=== PATIENT | female | born 1980 | race Caucasian/White ===

== ENCOUNTER 2018-01-01 05:18 | Day surgery (SDC) | payer BC ==
[2017-12-31 15:42] VITALS: BMI 32.3
[2018-01-01] MEDS ORDERED: IBUPROFEN 800 MG/8 ML IJ IVPB PRN (13:17)
--- NOTE | 2018-01-01 13:17 | HP ---
History & Physical Update - History History: No Change - Physical Physical: No Change - Assessment Assessment: No Change - Plan Plan: No Change (Agree with H&P from 12/27/17, for HTA endometrial ablation 2/2 menorrhagia)
[2018-01-01] MEDS ORDERED: ONDANSETRON 4 MG/2 ML VIAL IVPUSH PRN (13:20)
[2018-01-01] MEDS ORDERED: MIDAZOLAM HCL 2 MG/2 ML SINGLE DOSE VIAL ONE (13:24)
[2018-01-01] MEDS ORDERED: PROPOFOL 20 ML ONE (13:28)
[2018-01-01] MEDS ORDERED: SUCCINYLCHOLINE CHLORIDE 200 MG/10 ML VIAL ONE (13:30)
[2018-01-01] MEDS ORDERED: LACTATED RINGERS SOLUTION 1,000 ML IV SCH ×2 (13:30)
[2018-01-01] MEDS ORDERED: DEXAMETHASONE SOD PHOSPHATE 4 MG/1 ML VIAL ONE (13:56)
[2018-01-01] MEDS ORDERED: KETOROLAC TROMETHAMINE 30 MG/1 ML VIAL ONE (13:56)
[2018-01-01] MEDS ORDERED: LIDOCAINE HCL/PF 2% SDV 5ML VIAL ONE (13:56)
--- NOTE | 2018-01-01 15:04 | OP ---
Operative Note - Note: Operative Date: 01/01/18 Pre-Operative Diagnosis: Menorrhagia Operation: HTA endometrial ablation Findings: normal uterine cavity, bilteral tubal ostea noted Post-Operative Diagnosis: Same as Pre-op Surgeon: Alisia Lozano Anesthesiologist/HAND MOLD MAKER: iNcci Miller MD Anesthesia: General (LMA) Estimated Blood Loss (mls): 20 Operative Report Dictated: Yes
[2018-01-01] MEDS ORDERED: oxyCODONE HCL 5 MG TABLET ONE (15:22)
[2018-01-01 18:11] VITALS: BP 145/86; PULSE 75; TEMP 98.7
--- NOTE | 2018-01-02 10:25 | OP ---
DATE OF OPERATION: 01/01/2018 PREOPERATIVE DIAGNOSIS: Menorrhagia. POSTOPERATIVE DIAGNOSIS: Menorrhagia. PROCEDURE: HTA endometrial ablation. SURGEON: Alisia Lozano DO ACCOUNT EXECUTIVE: None. ANESTHESIA: LMA. ANESTHESIOLOGIST: Nicci Miller MD FINDINGS: A normal intrauterine cavity. Bilateral tubal ostia were noted. ESTIMATED BLOOD LOSS: 20 mL. COMPLICATIONS: None. COUNTS: Sponge, needle, and instrument counts correct. DISPOSITION: Stable, to PACU. BRIEF HISTORY AND PROCEDURE: Patient is a 37-year-old female who has been seen in the office with a long history of menorrhagia. We tried several methods, such as control pills, IUDs, and requested more definitive treatment, and therapies were discussed, and she elected to undergo an HTA endometrial ablation. The patient is not desiring future childbearing. The patient was admitted to the hospital on January 01, 2018. Consents were signed in the office, but reconfirmed upon admission on that date. She was then taken back to the operating room and placed in the dorsal lithotomy position and given the LMA anesthesia. She was then prepped and draped in the usual sterile fashion and a hard timeout was performed. A speculum was placed inside the vagina. The anterior lip of the cervix was grasped with a tenaculum and the cervix was serially dilated to accommodate the endometrial scope. The scope was advanced to inside the cervix into the uterus. A diagnostic hysteroscopy was performed. Bilateral tubal ostia were noted and a normal intrauterine cavity was appreciated. The scope was then retracted to the level of the internal cervical os and the device was activated. Any leaking of fluid from the cervix was stopped with application of another tenaculum and the ablation was initiated. The ablation occurred without incident and a diagnostic hysteroscopy performed after the ablation was completed with no evidence of uterine perforation. No other intrauterine trauma was appreciated. All instruments were removed from the uterus and the vagina. Two cervical lacerations were noted from the application of the tenaculum which were repaired with 3-0 Vicryl sutures in an interrupted fashion. Excellent hemostasis was achieved. All instruments and needles were removed from the surgical site. Sponge, needle, and instrument counts were reported to be correct. The patient was awoken from anesthesia and recovering in stable condition in the PACU after the procedure. ALISIA LOZANO DO /[id number]
== END 2018-01-01 17:00 | disposition home or self-care (01) ==
LOC: JASU-SURG 05:18
PROVIDERS: ATTEND Obstetrics & Gynecology
PROC: 0U5B8ZZ Destruction of Endometrium, Via Natural or Artificial Opening Endoscopic (ICD-10-PCS; principal; 2018-01-01 13:00)
DX: N92.0 Excessive and frequent menstruation with regular cycle (principal)
CPT/HCPCS: 84703; 94760

== ENCOUNTER 2018-09-08 16:21 | Emergency (ER) | payer BC ==
--- NOTE | 2018-09-08 16:59 | PDOC ---
Rapid Medical Evaluation Chief Complaint: Pain Time Seen by Provider: 09/08/18 16:55 Medical Evaluation: Allergies Allergy/AdvReac Type Severity Reaction Status Date / Time No Known Drug Allergies Allergy Verified 09/08/18 16:51 09/08/18 16:55 I have performed a brief in-person evaluation of this patient. The patient presents with chief complaint of feeling tired and pain to left rib area. Also reports loss of appetite. Pertinent physical exam findings NAD even, clear lungs bilaterally non tender luq I have ordered the following The patient will proceed to the Ed for further evaluation Discharge Disposition - Diagnosis Abdominal pain - Referrals - Patient Instructions - Post Discharge Activity
[2018-09-08 17:00] VITALS: BMI 31.9
--- NOTE | 2018-09-08 18:13 | PDOC ---
History of Present Illness - General History Source: Patient Exam Limitations: No Limitations - History of Present Illness Initial Comments: 09/08/18 18:50 The patient is a 37 year old female, with a significant past medical history of HTN (compliant with medication) who presents to the emergency department with one week of generalized malaise and L anterior rib cage pain. The patient states she experiences dyspnea, secondary to her symptoms for the past week. The patient reports she was diagnosed with MONO 2 weeks ago that self resolved. The patient denies taking any medication today. The patient denies chest pain, headache and dizziness, fever, chills, nausea, vomit, diarrhea and constipation. The patient denies dysuria, frequency, urgency and hematuria. Allergies: NKDA Past surgical history: Cholecystectomy Social history: social drinker PCP: Beto Olvera <Sherly Magdaleno - Last Filed: 09/08/18 18:50> <Vi Mireles - Last Filed: 09/08/18 23:06> - General Chief Complaint: Pain Stated Complaint: PAIN Time Seen by Provider: 09/08/18 16:55 Past History <Sherly Magdaleno - Last Filed: 09/08/18 18:50> - Past Medical History Anemia: No Asthma: No Cancer: No Cardiac Disorders: No CVA: No COPD: No CHF: No Dementia: No Diabetes: No GI Disorders: No Disorders: No HTN: Yes Hypercholesterolemia: No Liver Disease: No Seizures: No Thyroid Disease: No - Surgical History Abdominal Surgery: No Appendectomy: No Cardiac Surgery: No Cholecystectomy: Yes Lung Surgery: No Neurologic Surgery: No Orthopedic Surgery: No - Immunization History Immunization Up to Date: Yes - Suicide/Smoking/Psychosocial Hx Smoking History: Never smoked Have you smoked in the past 12 months: Yes Number of Cigarettes Smoked Daily: 7 'Breaking Loose' booklet given: 12/31/17 Hx Alcohol Use: No Drug/Substance Use Hx: No Substance Use Type: Alcohol Hx Substance Use Treatment: No <Vi Mireles - Last Filed: 09/08/18 23:06> - Past Medical History Allergies/Adverse Reactions: Allergies Allergy/AdvReac Type Severity Reaction Status Date / Time No Known Drug Allergies Allergy Verified 09/08/18 16:51 Home Medications: Ambulatory Orders Hydrochlorothiazide [Hctz -] 25 mg PO DAILY 12/31/17 Lisinopril 2.5 mg PO DAILY 12/31/17 Phentermine HCl 37.5 mg PO DAILY 12/31/17 Ibuprofen [Motrin -] 600 mg PO QID PRN #28 tablet 01/01/18 Review of Systems - Review of Systems Able to Perform ROS?: Yes Comments:: 09/08/18 18:51 GENERAL/CONSTITUTIONAL: (+) general malaise. No fever or chills. HEAD, EYES, EARS, NOSE AND THROAT: No change in vision. No ear pain or discharge. No sore throat. CARDIOVASCULAR:(+) dyspnea. No chest pain. RESPIRATORY: No cough, wheezing, or hemoptysis. GASTROINTESTINAL: No nausea, vomiting, diarrhea or constipation. GENITOURINARY: No dysuria, frequency, or change in urination. MUSCULOSKELETAL: No joint or muscle swelling or pain. No neck or back pain. SKIN: No rash CHEST: (+) L anterior rib cage pain. NEUROLOGIC: No headache, vertigo, loss of consciousness, or change in strength/ sensation. ENDOCRINE: No increased thirst. No abnormal weight change. HEMATOLOGIC/LYMPHATIC: No anemia, easy bleeding, or history of blood clots. ALLERGIC/IMMUNOLOGIC: No hives or skin allergy. <Sherly Magdaleno - Last Filed: 09/08/18 18:50> *Physical Exam - Vital Signs Last Vital Signs Temp Pulse Resp BP Pulse Ox 98.2 F 96 H 16 132/85 98 09/08/18 16:51 09/08/18 16:51 09/08/18 16:51 09/08/18 16:51 09/08/18 16:51 - Physical Exam Comments: 09/08/18 18:51 GENERAL: Awake, alert, and fully oriented, in no acute distress HEAD: No signs of trauma EYES: PERRLA, EOMI, sclera anicteric, conjunctiva clear ENT: Auricles normal inspection, hearing grossly normal, nares patent, oropharynx clear without exudates. Moist mucosa NECK: Normal ROM, supple, no lymphadenopathy, JVD, or masses LUNGS: Breath sounds equal, clear to auscultation bilaterally. No wheezes, and no crackles HEART: Regular rate and rhythm, normal S1 and S2, no murmurs, rubs or gallops CHEST: (+) L anterior rib cage pain. ABDOMEN: Soft, nontender, normoactive bowel sounds. No guarding, no rebound. No masses EXTREMITIES: Normal range of motion, no edema. No clubbing or cyanosis. No cords, erythema, or tenderness NEUROLOGICAL: Cranial nerves II through XII grossly intact. Normal speech, normal gait SKIN: Warm, Dry, normal turgor, no rashes or lesions noted. <Sherly Magdaleno - Last Filed: 09/08/18 18:50> - Vital Signs Last Vital Signs Temp Pulse Resp BP Pulse Ox 98.2 F 96 H 16 132/85 98 09/08/18 16:51 09/08/18 16:51 09/08/18 16:51 09/08/18 16:51 09/08/18 16:51 <Vi Mireles - Last Filed: 09/08/18 23:06> Moderate Sedation - Procedure Monitoring Vital Signs: Procedure Monitoring Vital Signs Temperature 98.2 F 09/08/18 16:51 Pulse Rate 96 H 09/08/18 16:51 Respiratory Rate 16 09/08/18 16:51 Blood Pressure 132/85 09/08/18 16:51 O2 Sat by Pulse Oximetry (%) 98 09/08/18 16:51 <Sherly Magdaleno - Last Filed: 09/08/18 18:50> - Procedure Monitoring Vital Signs: Procedure Monitoring Vital Signs Temperature 98.2 F 09/08/18 16:51 Pulse Rate 96 H 09/08/18 16:51 Respiratory Rate 16 09/08/18 16:51 Blood Pressure 132/85 09/08/18 16:51 O2 Sat by Pulse Oximetry (%) 98 09/08/18 16:51 <Vi Mireles - Last Filed: 09/08/18 23:06> ED Treatment Course - LABORATORY CBC & Chemistry Diagram: 09/08/18 19:27 09/08/18 19:27 <Vi Mireles - Last Filed: 09/08/18 23:06> Medical Decision Making - Medical Decision Making 09/08/18 22:54 37 yo female was diagnosed with Infectious mononucleosis several weeks ago and has had some left anterior ribcage discomfort -no fever,no chills,no vomiting,no sub sternal chest pain -she googled her symptoms and came because she read that pain on her left side maybe due to spleenomegaly -she did not have any splenic tenderness on exam labs unremarkable cxr napd imp atypical chest pain/ d/c home and will follow up w PCP <Vi Mireles - Last Filed: 09/08/18 23:06> *DC/Admit/Observation/Transfer - Attestations Scribe Attestion: 09/08/18 18:54 Documentation prepared by Sherly Magdaleno, acting as medical supervisor for Vi Mireles MD <Sherly Magdaleno - Last Filed: 09/08/18 18:50> <Vi Mireles - Last Filed: 09/08/18 23:06> Diagnosis at time of Disposition: Atypical chest pain - Discharge Dispostion Disposition: HOME Condition at time of disposition: Stable - Referrals Referrals: Beto Morgan [Primary Care Provider] - - Patient Instructions Printed Discharge Instructions: DI for Atypical Chest Pain Additional Instructions: please follow up with your regular physician - Post Discharge Activity
[2018-09-08] MEDS ORDERED: IBUPROFEN 600 MG TABLET (FP) PO ONE ×2 (18:40→18:57)
[2018-09-08 19:40] LABS: URINE APPEARANCE CLEAR; URINE BILIRUBIN NEGATIVE (<2.0 mg/dL); URINE COLOR YELLOW; URINE GLUCOSE (UA) NEGATIVE (NEGATIVE); URINE KETONE NEGATIVE (NEGATIVE); URINE LEUK ESTERASE NEGATIVE (NEGATIVE); URINE NITRITE NEGATIVE (NEGATIVE); URINE PROTEIN NEGATIVE (NEGATIVE); URINE UROBILINOGEN NEGATIVE mg/dL (0.2-1.0)
[2018-09-08 20:02] LABS: BASO % 0.7 % (0-2.0); EOS % 0.9 % (0-4.5); HEMOGLOBIN 13.6 GM/dL (10.7-15.3); LYMPH % 19.3 % (8-40); MCH 30.8 pg (25.7-33.7); MCHC 34.9 g/dl (32.0-36.0); MEAN CELL VOLUME 88.3 fl (80-96); MEAN PLT VOLUME 9.3 fl (7.5-11.1); MONO % 7.6 % (3.8-10.2); NEUT % 71.5 % (42.8-82.8); PLATELET COUNT 380 K/MM3 (134-434); RBC 4.42 M/mm3 (3.60-5.2); RDW 13.3 % (11.6-15.6); WHITE BLOOD COUNT 12.2 K/mm3 (4.0-10.0)
[2018-09-08 20:25] LABS: ALBUMIN 3.5 g/dl (3.4-5.0); ALK PHOS 69 U/L (45-117); ANION GAP 8 MMOL/L (8-16); BILIRUBIN,TOTAL 0.7 mg/dL (0.2-1); BLOOD UREA NITROGEN 16 mg/dL (7-18); CALCIUM 9.2 mg/dL (8.5-10.1); CHLORIDE 98 mmol/L (98-107); CO2 30 mmol/L (21-32); CREATININE 0.9 mg/dL (0.55-1.3); GLUCOSE,RANDOM 97 mg/dL (74-106); POTASSIUM 3.6 mmol/L (3.5-5.1); SGOT/AST 18 U/L (15-37); SGPT/ALT 24 U/L (13-61); SODIUM 136 mmol/L (136-145); TOT PROT 7.5 g/dl (6.4-8.2)
[2018-09-08 20:32] VITALS: BP 147/100; PULSE 112; TEMP 98
== END 2018-09-08 21:16 | disposition home or self-care (01) ==
LOC: JER 16:21
DX: R07.9 Chest pain, unspecified (principal); I10 Essential (primary) hypertension
CPT/HCPCS: 36415; 71046-TC-FY; 80053; 81003; 84703; 85025; 99282-25